=== PATIENT | male | born 1995 | race Caucasian/White ===

== ENCOUNTER 2025-01-17 19:01 | Emergency (ER) | payer MEDICAID ==
[~2025-01-17] VITALS: Ht 185.4 cm; Wt 125.0 kg
[2025-01-17 19:04] VITALS: BP 155/95; PULSE 98; RESP 15; O2SAT 100
[2025-01-17] MEDS: amox tr/potassium clavulanate 875/125mg TAB PO ONE (20:24)
[2025-01-17] MEDS: LIDOcaine 2% Viscous 15ml cup MM ONE (20:24)
[2025-01-17] MEDS: BUPIVAcaine 0.5% W/EPI /PF 10ml vial IJ STA (20:25)
[2025-01-17] MEDS ORDERED: AMOX-580 PO (20:46)
--- NOTE | 2025-01-17 20:46 | Physician Documentation ---
HPI ~ General Chief Complaint: Tooth Problem Stated Complaint: TOOTH PROBLEM Time Seen by MD: 20:09 History of Present Illness HPI Comment This is a 29-year-old male who presents with right upper premolar pain after a previously damaged premolar broke while he was chewing food tonight, patient has follow up with a dentist 1st thing in the morning. Patient reports no fever, facial swelling, difficulty breathing, or difficulty swallowing. Medication Reconciliation Allergies: Coded Allergies: No Known Allergies (Unverified , 01/17/25) Scheduled Amox Tr/Potassium Clavulanate 875/125 MG (Augmentin 875/125 MG), 1 TAB PO BID Past Medical History Past Medical History: No Pertinent History Review of Systems ROS As stated above in the HPI, otherwise all systems are reviewed and negative. Physical Exam Vital Signs: Temperature: 96.8, Source: Temporal, Heart Rate: 98, Respiratory Rate: 15, BP: 155/95, Pulse Oximetry: 100, Weight: 125.000 Physical Exam VITALS: Reviewed and as above. GENERAL: Alert, nontoxic appearing, no apparent distress. HEENT: Right upper premolar severely decayed, cracked, portion missing, portion loose, base of tooth no erythema or fluctuance no facial swelling, no submandib ular swelling, no elevation of the tongue, no drooling RESPIRATORY: No increased work of breathing, no respiratory distress, speaking in full clear sentences Procedures Nerve Block Nerve Block Site: Right upper premolar Anesthetic Used: bupivacaine (0.5% with epinephrine) Volume Anesthetic (ccs): 6 Tolerated Procedure Well?: yes, no complications Progress Results/Orders Results/Orders Completed Orders - JOBY BLANCO W EXHIBIT ELECTRICIAN Lidocaine 2% Viscous (Xylocaine 2% Visco (01/17/25 20:10) Bupivacaine 0.5% W/Epi/Pf (Sensorcaine-E (01/17/25 20:09) Amox Tr/Potassium Clavulanate (Augmentin (01/17/25 20:20) Vital Signs 01/17/25 01/17/25 19:04 20:52 Temp 96.8 96.8 Pulse 98 Resp 15 B/P (MAP) 155/95 Pulse Ox 100 Medical Decision Making Additional information obtaine: N/A Findings This well appearing 29-year-old male presented with dental pain to the right upper premolar. Based on history and physical exam I have low clinical suspicion for peritonsillar abscess, uvulitis, deep tissue space infection of the he ad/neck, or impending airway compromise. There was no submandibular swelling or elevation of the tongue, the uvula was midline, patient is able to swallow fluids and secretion without difficulty, there is no increased work of breathing or noisy breathing. Based on presentation I am concerned for odontogenic infection and antibiotic treatment with Augmentin. Remainder of physical exam was benign patient is otherwise well-appearing. Pain well controlled after local nerve block of the affected tooth, patient is appropriate for outpatient follow up with dentist and that has reassuring patient has prompt follow up a dentist in the morning. Patient provided home care instructions return to care precautions follow up instructions which she verbalized understanding of. Differential Dx:Considerations: Include: Alveolar fracture, Alveolar osteitis, ANUG, Facial Cellulitis, Periapical abscess, Peridontal abscess, Post-extraction bleeding, Pulpitis, Tooth avulsion, Tooth eruption, Tooth Fracture, Trigeminal neuralgia, Tooth subluxation Departure Time of Disposition: 20:43 Disposition: HOME / SELF CARE / HOMELESS Impression: Primary Impression: Toothache Condition: Improved Discharge Instructions: Dental Pain Additional Instructions: Please take antibiotics as prescribed, you may stop the antibiotics if instructed to by your dentist. You may use 800 mg of ibuprofen and 1000 mg of Tylenol 3 times a day as needed for pain. Follow up soon as possible with a dentist. Please follow up with your primary care provider in the next few days. Please return to the emergency department for any new or worsening concerning symptoms but not limited to if you develop severe facial swelling that prevents you from breathing or swallowing or if you develop a fever over 100.4 that does not lower with ibuprofen or Tylenol. Referrals: NO PRIMARY CARE PROVIDER (PCP) Prescriptions Amox Tr/Potassium Clavulanate 875/125 MG (Augmentin 875/125 MG) 875 Mg-125 Mg Tablet 1 TAB PO BID for 7 Days, #14 TAB Prov: JOBY BLANCO 01/17/25 Education Educated: Patient Educated regarding: diagnosis, treatment, prognosis, need for follow up Signature Scribe Signature: No scribe Attestation: The note accurately reflects work and decisions made by me.CÉSAR Finley 01/19/25 02:56 JOBY BLANCO Jan 17, 2025 20:46
[2025-01-17 20:52] VITALS: TEMP 96.8
== END 2025-01-17 20:53 | disposition home or self-care (01) ==
LOC: ER 19:02
DX: K08.89 Other specified disorders of teeth and supporting structures (principal)
CPT/HCPCS: 64400; 99284